=== PATIENT | female | born 1935 | race Caucasian/White ===

== ENCOUNTER → 2017-01-03 | Outpatient (CLI) | payer MEDICARE ==
[~2017-01-03] MED LIST: ALORA0.05 MG/24 T; ASPIRIN ADULT L81 M1 PO; DIOVAN80 MG PO; ESTRADIOL0.5 MG INTRADERM; LIPITOR10 MG PO; MEDROL DOSEPAK4 MG PO; NORVASC2.5 MG PO; XANAX0.25 MG PO
== END | disposition home or self-care (01) ==
LOC: US 03:23
DX: I65.23 Occlusion and stenosis of bilateral carotid arteries (principal)

== ENCOUNTER → 2022-04-21 | Outpatient (CLI) | payer MEDICARE | END | disposition home or self-care (01) | LOC: RAD 11:02 | PROVIDERS: ATTEND Orthopaedic Surgery | DX: M17.12 Unilateral primary osteoarthritis, left knee (principal); M25.762 Osteophyte, left knee; M16.12 Unilateral primary osteoarthritis, left hip ==

== ENCOUNTER 2023-03-29 11:35 | Emergency (ER) | payer MEDICARE ==
[~2023-03-29] VITALS: Ht 167.6 cm; Wt 60.8 kg
[2023-03-29] MEDS ORDERED: TRIAMTERENE & H1 CAP PO (12:18)
[2023-03-29] MEDS ORDERED: ALBUTEROL2.5 MG/0.5 INH (12:19)
[2023-03-29] MEDS ORDERED: PREDNISONE10 MG PO (12:41)
== END 2023-03-29 12:52 | disposition home or self-care (01) ==
LOC: ED 11:35
DX: S39.012A Strain of muscle, fascia and tendon of lower back, initial encounter (principal); F41.9 Anxiety disorder, unspecified; I10 Essential (primary) hypertension; E78.5 Hyperlipidemia, unspecified; J45.909 Unspecified asthma, uncomplicated; Z88.0 Allergy status to penicillin; Z91.012 Allergy to eggs; Z88.1 Allergy status to other antibiotic agents; Z88.2 Allergy status to sulfonamides; Z91.018 Allergy to other foods; Z90.710 Acquired absence of both cervix and uterus; Z98.890 Other specified postprocedural states; X50.0XXA Overexertion from strenuous movement or load, initial encounter; Y93.89 Activity, other specified; Y92.009 Unspecified place in unspecified non-institutional (private) residence as the place of occurrence of the external cause; Y99.0 Civilian activity done for income or pay

== ENCOUNTER 2024-04-22 11:56 | Emergency (ER) | payer MEDICARE ==
[~2024-04-22] VITALS: Ht 165.1 cm; Wt 61.2 kg
[~2024-04-22 11:56] MED LIST changes: +ALBUTEROL2.5 MG/0.5 INH; +PREDNISONE10 MG PO; +TRIAMTERENE & H1 CAP PO
[2024-04-22] MEDS ORDERED: ALIGN4 M1 PO (12:30)
== END 2024-04-22 12:50 | disposition home or self-care (01) ==
LOC: ED 11:56
DX: S39.012A Strain of muscle, fascia and tendon of lower back, initial encounter (principal); I10 Essential (primary) hypertension; E78.5 Hyperlipidemia, unspecified; F41.9 Anxiety disorder, unspecified; J45.909 Unspecified asthma, uncomplicated; Z88.0 Allergy status to penicillin; Z91.012 Allergy to eggs; Z88.1 Allergy status to other antibiotic agents; Z88.2 Allergy status to sulfonamides; Z91.018 Allergy to other foods; Z90.710 Acquired absence of both cervix and uterus; Z98.890 Other specified postprocedural states; X50.1XXA Overexertion from prolonged static or awkward postures, initial encounter; Y93.89 Activity, other specified; Y92.009 Unspecified place in unspecified non-institutional (private) residence as the place of occurrence of the external cause; Y99.8 Other external cause status